=== PATIENT | female | born 1995 | race Caucasian/White ===

== ENCOUNTER 2018-06-08 08:48 | Inpatient (IN) | payer OTHER ==
[2018-06-08] MEDS ORDERED: BUTORPHANOL 2 MG INJ IV (09:30)
[2018-06-08] MEDS ORDERED: OXYTOCIN 30 UNITS/LR 500 ML IV ×2 (09:30)
[2018-06-08] MEDS ORDERED: CARBOPROST 250 MCG INJ IM (09:30)
[2018-06-08] MEDS ORDERED: METHYLERGONOVINE 0.2 MG INJ IM (09:30)
[2018-06-08] MEDS ORDERED: MISOPROSTOL 200 MCG TAB PR (09:30)
[2018-06-08] MEDS ORDERED: BUTORPHANOL 1 MG INJ IV (09:30)
[2018-06-08] MEDS ORDERED: IBUPROFEN 600 MG TAB PO (09:30)
[2018-06-08] MEDS: LACTATED RINGER'S 1,000 ML IV* ×3 (10:45→21:51)
[2018-06-08] MEDS: AMPICILLIN 2 GM/NS (PMX) 100 ML IV (10:51)
[2018-06-08 11:40] LABS: ADD MAN DIFF? NO
[2018-06-08 11:41] LABS: WHITE BLOOD COUNT 10.8 10^3/ul (4.8-10.8)
[2018-06-08 11:41] LABS: BASOPHILS % 0.3 % (0.0-2.0); EOSINOPHILS # 0.1 10^3/ul (0.0-0.5); EOSINOPHILS % 1.2 % (0.0-7.0); HEMATOCRIT 37.7 % (37.0-47.0); HEMOGLOBIN 12.1 g/dl (12.0-16.0); LYMPHOCYTES # 2.1 10^3/ul (0.8-2.9); LYMPHOCYTES % 19.7 % (15.0-51.0); MEAN CORPUSCULAR HEMOGLOBIN 28.5 pg (29.0-33.0); MEAN CORPUSCULAR HGB CONC 32.1 g/dl (32.0-37.0); MEAN CORPUSCULAR VOLUME 88.7 fl (82.0-101.0); MEAN PLATELET VOLUME 12.4 fl (7.4-10.4); MONOCYTE # 0.8 10^3/ul (0.3-0.9); MONOCYTES % 7.4 % (0.0-11.0); NEUTROPHIL # 7.6 10^3/ul (1.6-7.5); NEUTROPHILS % 69.8 % (39.0-77.0); PLATELET COUNT 183 10^3/UL (140-415); RED BLOOD COUNT 4.25 10^6/ul (4.20-5.40); RED CELL DISTRIBUTION WIDTH 14.5 % (11.5-14.5)
[2018-06-08 12:01] LABS: INR 0.95; PROTIME 12.8 Sec (11.9-14.9)
[2018-06-08 12:02] LABS: PARTIAL THROMBOPLASTIN TIME 28.6 Sec (23.0-35.0)
[2018-06-08] MEDS: MISOPROSTOL 50 MCG CAPSULE PO ×4 (12:58→23:04)
[2018-06-08] MEDS ORDERED: MISOPROSTOL 50 MCG CAPSULE PO (13:00)
[2018-06-08] MEDS ORDERED: AMPICILLIN 1 GM/NS (PMX) 50 ML IV (13:30)
[2018-06-08] MEDS: AMPICILLIN 1 GM/NS (PMX) 50 ML IV ×3 (15:21→23:01)
[2018-06-08 22:03] LABS: HEPATITIS B SURFACE ANTIGEN NEGATIVE (NEGATIVE)
[2018-06-09] MEDS: AMPICILLIN 1 GM/NS (PMX) 50 ML IV ×6 (03:30→23:14)
[2018-06-09] MEDS: MISOPROSTOL 50 MCG CAPSULE PO ×2 (03:32→07:32)
[2018-06-09] MEDS: LACTATED RINGER'S 1,000 ML IV* ×2 (07:18→15:49)
[2018-06-09] MEDS: OXYTOCIN 30 UNITS/LR 500 ML IV (13:08)
[2018-06-09 16:15] LABS: RAPID PLASMA REAGIN NONREACTIVE (NR)
[2018-06-10] MEDS: LACTATED RINGER'S 1,000 ML IV* ×4 (01:18→16:23)
[2018-06-10] MEDS: AMPICILLIN 1 GM/NS (PMX) 50 ML IV (03:16)
[2018-06-10] MEDS ORDERED: FENTAnyl 2MCG/ML-ROPIV 0.2% 100 ML (04:21)
[2018-06-10] MEDS ORDERED: NALOXONE (0.4 MG/ML) INJ IV (04:30)
[2018-06-10] MEDS: FENTAnyl 2MCG/ML-ROPIV 0.2% 100 ML BAG EPI (04:37)
[2018-06-10] MEDS: OXYTOCIN 30 UNITS/LR 500 ML IV ×5 (08:08→16:50)
[2018-06-10] MEDS ORDERED: MISOPROSTOL 200 MCG TAB PR (08:30)
[2018-06-10] MEDS ORDERED: BENZOCAINE 20% 56 ML SPRAY TOP (08:30)
[2018-06-10] MEDS ORDERED: CARBOPROST 250 MCG INJ IM (08:30)
[2018-06-10] MEDS ORDERED: HYDROCODONE/APAP (5/325) TAB PO (08:30)
[2018-06-10] MEDS ORDERED: METHYLERGONOVINE 0.2 MG INJ IM (08:30)
[2018-06-10] MEDS ORDERED: OXYTOCIN 30 UNITS/LR 500 ML IV ×2 (08:30→08:43)
[2018-06-10] MEDS: LIDOCAINE 0.5% (SDV) 50 ML INJ INFIL (10:37)
[2018-06-10] MEDS: LANOLIN 7 GM TUBE TOP (13:04)
[2018-06-10] MEDS: IBUPROFEN 600 MG TAB PO ×2 (13:04→17:43)
[2018-06-11] MEDS: IBUPROFEN 600 MG TAB PO ×5 (05:25→15:54)
[2018-06-11 08:45] LABS: ADD MAN DIFF? NO
[2018-06-11 08:53] LABS: BASOPHIL # 0.1 10^3/ul (0.0-0.1); BASOPHILS % 0.5 % (0.0-2.0); EOSINOPHILS # 0.2 10^3/ul (0.0-0.5); EOSINOPHILS % 1.6 % (0.0-7.0); HEMATOCRIT 33.3 % (37.0-47.0); HEMOGLOBIN 10.8 g/dl (12.0-16.0); LYMPHOCYTES % 26.2 % (15.0-51.0); MEAN CORPUSCULAR HGB CONC 32.4 g/dl (32.0-37.0); MEAN CORPUSCULAR VOLUME 89.5 fl (82.0-101.0); MEAN PLATELET VOLUME 12.4 fl (7.4-10.4); MONOCYTE # 0.9 10^3/ul (0.3-0.9); MONOCYTES % 8.1 % (0.0-11.0); NEUTROPHIL # 7.1 10^3/ul (1.6-7.5); NEUTROPHILS % 62.5 % (39.0-77.0); PLATELET COUNT 148 10^3/UL (140-415); RED BLOOD COUNT 3.72 10^6/ul (4.20-5.40); RED CELL DISTRIBUTION WIDTH 14.6 % (11.5-14.5)
[2018-06-11 08:53] LABS: WHITE BLOOD COUNT 11.4 10^3/ul (4.8-10.8)
[2018-06-12] MEDS ORDERED: DIPHTH/TET/ACEL PERTUSS (ADULT) 0.5 ML VIAL IM* (09:00)
== END 2018-06-11 19:30 | disposition home or self-care (01) | DRG 807 ==
LOC: PP1 06-10 09:33 → L-D 08:48
PROVIDERS: Specialist
PROC: 10E0XZZ Delivery of Products of Conception, External Approach (ICD-10-PCS; principal; 2018-06-10)
PROC: 0KQM0ZZ Repair Perineum Muscle, Open Approach (ICD-10-PCS; 2018-06-10)
PROC: 3E033VJ Introduction of Other Hormone into Peripheral Vein, Percutaneous Approach (ICD-10-PCS; 2018-06-10)
DX: O48.0 Post-term pregnancy (principal); O70.1 Second degree perineal laceration during delivery; O71.82 Other specified trauma to perineum and vulva; Z37.0 Single live birth; Z3A.40 40 weeks gestation of pregnancy
CPT/HCPCS: 62319; 76815; 85025; 85610; 85730; 86592; 86850; 86900; 86901; 87340; 90686